=== PATIENT | female | born 1955 | race Caucasian/White ===

== ENCOUNTER 2016-06-25 19:09 | Emergency (ER) | payer BC ==
[2016-06-25 19:20] VITALS: TEMP 100.1
[2016-06-25] MEDS ORDERED: predniSONE 20 MG TAB PO ONE (19:27)
[2016-06-25] MEDS ORDERED: COLCHICINE 0.6 MG TAB PO ONE (19:27)
[2016-06-25] MEDS ORDERED: KETOROLAC TROMETHAMINE INJ 30 MG/ML VIAL IM ONE (19:27)
[2016-06-25 20:20] VITALS: BP 112/59; O2SAT 92
--- NOTE | 2016-06-25 20:45 | ED.PDOC ---
History of Present Illness - General Chief Complaint: Lower Extremity Injury Stated Complaint: rt knee pain Time Seen by Provider: 06/25/16 19:27 Source: patient Exam Limitations: no limitations - History of Present Illness Initial Comments: the patient is a 61-year-old female presenting to the ER due to the acute onset of medial anterior right knee pain while resting on the couch at home. No recent injury. She reports it as a burning type pain. Much worse with palpation. She has had some mild low back discomfort. No weakness. No swelling. Norecent sedentary periods. No other change in medications other than the start of metformin a month or 2 ago. She does drink wine. No history of gout. No injections in the knee. No recent infections. Exam of the knee itself shows exquisite tenderness to palpation in the anterior medial inferior aspect of the knee. Most of the pain is just above the anserine bursa. There is some mild pain over the medial collateral ligament. No pain in the prepatellar bursa. No palpable cords posteriorly. No significant pain posteriorly. No obvious deformity. No evidence of trauma. There is some mild increased warmth over that area. No significant swelling. No evidence of tenderness to palpation over the posterior knee or the right side of the knee. Visually the knee appears normal. Occurred: just prior to arrival Pain - Lower Extremity: moderate: Right Knee Method of Injury: unknown Improving Factors: nothing Worsening Factors: movement Allergies/Adverse Reactions: Allergies NO KNOWN ALLERGY Allergy (Verified 06/25/16 19:32) Home Medications: Ambulatory Orders Amlodipine Besylate-Benazepril [Lotrel 5-10 mg] 1 cap PO DAILY 05/20/15 Atorvastatin Calcium [Lipitor] 40 mg PO BEDTIME 05/20/15 Esomeprazole Magnesium [Nexium 24Hr] 20 mg PO DAILY 05/20/15 FLUoxetine HCL [Prozac] 10 mg PO DAILY 05/20/15 Colchicine 0.6 mg PO Q2H #5 tab 06/25/16 Review of Systems - Review of Systems Constitutional: States: no symptoms reported EENTM: States: no symptoms reported Respiratory: States: no symptoms reported Cardiology: States: no symptoms reported Gastrointestinal/Abdominal: States: no symptoms reported Genitourinary: States: no symptoms reported Musculoskeletal: States: see HPI Skin: States: no symptoms reported Neurological: States: no symptoms reported Endocrine: States: no symptoms reported All other Systems: No Change from Baseline Past Medical History (General) - Patient Medical History Hx Congestive Heart Failure: Yes Hx Hypertension: Yes Hx Diabetes: No Hx Cancer: No Hx Hepatitis C: No Surgical History: other - Vaccination History Hx Influenza Vaccination: Yes - Social History Hx Tobacco Use: No Hx Alcohol Use: Yes - occ Hx Substance Use Treatment: No Family Medical History - Family History Mother Hx Family Diabetes: Yes Hx Family Cancer: Yes Physical Exam - Physical Exam General Appearance: Alert, Anxious, No apparent distress Eyes, Ears, Nose, Throat: PERRL/EOMI Neck: non-tender, full range of motion, supple Cardiovascular/Respiratory: regular rate, rhythm, normal peripheral pulses, normal breath sounds, no respiratory distress Gastrointestinal/Abdominal: non-tender Thigh/Hip: normal inspection, non-tender, no evidence of injury, normal ROM Leg: normal inspection, non-tender, no evidence of injury, normal ROM Knee: other - see history of present illness Ankle: normal inspection, non-tender, no evidence of injury, normal ROM Foot: normal inspection, non-tender, no evidence of injury, normal ROM Neuro/Tendon: normal sensation, normal motor functions, normal tendon functions , responds to pain Mental Status: alert, oriented x 3 Skin: normal color Comments: Vital Signs - 24 hr 06/25/16 06/25/16 19:14 20:19 Temperature 100.1 F H Pulse Rate [ 105 H 85 left] Respiratory 18 18 Rate Blood Pressure 143/78 112/59 [right] O2 Sat by Pulse 95 92 L Oximetry Progress - Progress Progress: 06/25/16 20:46 the patient is a 61-year-old female with anterior medial right knee pain acute onset without obvious inciting trauma. She has responded well to anti-inflammatories including colchicine. Tentative diagnosis is gout. She needs to keep well hydrated. Keep the area warm. She needs to avoid alcohol and high protein loads. She needs to follow up with her primary care doctor early next week. ER warnings are given for any acute worsening. She has written for 5 tablets of colchicine only for as needed use. Departure - Departure Clinical Impression: Gout attack Qualifiers: Gout site: knee Gout etiology: unspecified cause Laterality: right Qualifier Code: (M10.9) Gout, unspecified Disposition: Discharge to Home or Self Care Condition: Fair Departure Forms: ED Discharge - Pt. Copy, Patient Portal Self Enrollment Instructions: DI for Gout Diet: regular diet Activity: increase activity as tolerated Referrals: Navdeep Montelongo MD [Primary Care Provider] - 1-5 Days Prescriptions: Colchicine 0.6 mg PO Q2H #5 tab Home Medications: Ambulatory Orders Amlodipine Besylate-Benazepril [Lotrel 5-10 mg] 1 cap PO DAILY 05/20/15 Atorvastatin Calcium [Lipitor] 40 mg PO BEDTIME 05/20/15 Esomeprazole Magnesium [Nexium 24Hr] 20 mg PO DAILY 05/20/15 FLUoxetine HCL [Prozac] 10 mg PO DAILY 05/20/15 Colchicine 0.6 mg PO Q2H #5 tab 06/25/16 Additional Instructions: the patient is a 61-year-old female with anterior medial right knee pain acute onset without obvious inciting trauma. She has responded well to anti-inflammatories including colchicine. Tentative diagnosis is gout. She needs to keep well hydrated. Keep the area warm. She needs to avoid alcohol and high protein loads. She needs to follow up with her primary care doctor early next week. ER warnings are given for any acute worsening. She has written for 5 tablets of colchicine only for as needed use. no evidence to support infection at this time.
== END 2016-06-25 21:06 | disposition home or self-care (01) ==
LOC: ER 19:09
DX: M10.9 Gout, unspecified (principal); I11.0 Hypertensive heart disease with heart failure; I50.9 Heart failure, unspecified; Z79.899 Other long term (current) drug therapy

== ENCOUNTER → 2019-02-17 | Outpatient (CLI) | payer BC ==
--- NOTE | 2019-02-21 19:53 | MAM ---
EXAM DESCRIPTION: 3D Screening BILATERAL : Digital Mammography. CLINICAL HISTORY: 63 years Female ANNUAL SCREENING . No complaints or personal history of breast cancer. Remote family history of breast cancer. Childbirth. Postmenopausal. HRT 5 or more years ago.. Lifetime risk of developing breast cancer (Tyrer-Cuzick model)(%): 8.9. COMPARISON: 2-D digital screening bilateral mammography 12/19/2014.. TECHNIQUE: Bilateral CC and MLO projection full-field images, digital tomosynthesis mammographic technique. Bilateral digital 2-D full-field MLO images. CAD not available for tomosynthesis or 2-D images. FINDINGS: The breast parenchymal density pattern is: Extremely dense breast tissue, which lowers the sensitivity of mammography. No skin thickening or nipple retraction. Right axillary lymph node. Bilateral solitary microcalcifications. No new focal, stellate mass or density, focal asymmetry , and no suspicious microcalcifications bilaterally. Stable mammograms compared to prior study. Taking into account, differences in mammographic technique. IMPRESSION: Benign exam. BIRAD CATEGORY: 2 BENIGN FINDINGS. RECOMMENDATIONS: FOLLOW UP: Routine digital bilateral mammographic screening, one year interval from January 2019. Written communication explaining the IMPRESSION and follow-up, will be mailed to the patient and referring health care provider. According to the [employer], yearly mammograms are recommended starting at age 40 and continuing as long as a woman is in good health. Any breast change noted on a breast self-exam should be reported promptly to the patient's healthcare provider. Breast MRI is recommended for women with an approximately 20-25% or greater lifetime risk of breast cancer, including women with a strong family history of breast or ovarian cancer and women who have been treated for Hodgkin's disease. A negative mammographic report should not delay tissue diagnosis in patients with significant clinical history or physical findings. Extremely dense breast tissue limits the sensitivity of digital mammography. Electronically signed by: Roland Briones MD 02/21/2019 7:52 PM CDT
== END ==
LOC: MAMMO 08:24
PROVIDERS: ATTEND Obstetrics & Gynecology
DX: Z12.31 Encounter for screening mammogram for malignant neoplasm of breast (principal)

== ENCOUNTER 2020-06-16 15:13 | Emergency (ER) | payer BC ==
[2020-06-16] MEDS ORDERED: DEXAMETHASONE INJ 10 MG/ML VIAL IV ONE (15:32)
--- NOTE | 2020-06-16 15:32 | ED.PDOC ---
History of Present Illness - General Chief Complaint: Respiratory Problem Stated Complaint: +COVID,shortness of breath,low sats Time Seen by Provider: 06/16/20 15:14 Source: patient, RN notes reviewed, Vital Signs reviewed Exam Limitations: no limitations - History of Present Illness Comments: 65 yo F with hx of HTN was dx with covid 5 days ago. Symptoms started 10 days ago. Had cough, congestion, shortness of breath. Today was feeling worse. Had pulse ox at home, states it wasn't reading well, but got a reading of 86%, rechecked it and it was back up to 94%. Came in because she was concerned about her oxygen levels. Allergies/Adverse Reactions: Allergies NO KNOWN ALLERGY Allergy (Verified 06/25/16 19:32) Home Medications: Ambulatory Orders Amlodipine Besylate-Benazepril [Lotrel 5-10 mg] 1 cap PO DAILY 05/20/15 Dexamethasone [Decadron] 4 mg PO DAILY #5 tab 06/16/20 Review of Systems - Review of Systems Constitutional: States: fever, malaise. Denies: chills EENTM: Denies: blurred vision, throat pain Respiratory: States: cough, short of breath Cardiology: Denies: chest pain, edema, palpitations Gastrointestinal/Abdominal: Denies: abdominal pain, diarrhea, nausea Musculoskeletal: Denies: back pain, joint pain, joint swelling, muscle pain Skin: Denies: rash Neurological: Denies: headache Endocrine: Denies: unexplained weight loss Hematologic/Lymphatic: Denies: blood clots, easy bleeding, easy bruising Past Medical History (General) - Patient Medical History Hx Stroke: No Hx Congestive Heart Failure: Yes Hx Hypertension: Yes Hx Diabetes: No Hx Cancer: No Hx Hepatitis C: No - Vaccination History Hx Influenza Vaccination: Yes Hx Pneumococcal Vaccination: Yes - Social History Hx Tobacco Use: No Hx Alcohol Use: Yes - occ Hx Substance Use Treatment: No Family Medical History - Family History Mother Family History: Unknown Living Status: Unknown Hx Family Diabetes: Yes Hx Family Cancer: Yes Physical Exam - Physical Exam General Appearance: Alert, Comfortable, No apparent distress, Well Developed, Well Groomed, Well Hydrated, Well Nourished Eye Exam: bilateral normal ENT Exam: normal ENT inspection, hearing grossly normal, TMs normal Neck: non-tender, full range of motion, supple, normal inspection Respiratory: chest non-tender, lungs clear, normal breath sounds, no respiratory distress, no accessory muscle use Cardiovascular/Chest: normal peripheral pulses, regular rate, rhythm, no edema, no gallop, no JVD, no murmur Gastrointestinal/Abdominal: normal bowel sounds, non tender, soft, no organomegaly, no pulsatile mass Extremity: normal range of motion, non-tender, normal inspection, no pedal edema, no calf tenderness, normal capillary refill Neurologic: flying i instructor II-XII nml as tested, no motor/sensory deficits, alert, normal mood/affect, oriented x 3 Skin Exam: normal color, warm/dry Progress - Progress Progress: 06/16/20 17:04 patient given remdisivir, dexamethasone. Due to having symptoms more than 10 days does not qualify for bamlanivumb. Discussed with Johnathon Brennan, suggest discharge with oxygen. patient does have home pulse ox. Oxygen qualification study shows O2 drop to 87%. Will dc with oxygen. The data reviewed when caring for this patient included: nurse notes, prior records, etc. The history and assessments from nurses notes were reviewed and considered, and the patient's home medication list was also reviewed and considered. My assessment and the results of testing completed here in the ED were discussed with the patient. All questions were answered, and they express understanding of my assessment and the plan. They have been instructed to return if their symptoms worsen, and have been asked to follow up with their primary care physician to recheck today's presenting complaint. Strict return precautions given. I have reviewed medication, benefits, alternatives and side effects. Patient decided to proceed with medication.vss, hr improved to 89, patient discharged home in stable condition. Leonor Valencia DO #[id number] 06/16/20 17:40 - EKG/XRAY/CT EKG: Sinus, Tachy Comments: normal intervals, no acute ischemia. XRAY: chest - no acute pathology Departure - Departure Clinical Impression: COVID-19, Hypoxia Time of Disposition: 17:31 Disposition: Discharge to Home or Self Care Diet: resume usual diet Activity: increase activity as tolerated Home Medications: Ambulatory Orders Amlodipine Besylate-Benazepril [Lotrel 5-10 mg] 1 cap PO DAILY 05/20/15 Dexamethasone [Decadron] 4 mg PO DAILY #5 tab 06/16/20 Decision To Admit - Decistion To Admit Decision to Admit Reason: Medical Nature Decision to Admit Date: 06/16/20 Decision to Admit Time: 16:01
--- NOTE | 2020-06-16 16:14 | RAD ---
EXAM DESCRIPTION: Chest,1 View CLINICAL HISTORY:65 years Female, covid Comparison: None FINDINGS: No focal lung consolidation. No pleural effusion. No pneumothorax. Cardiac and mediastinal silhouette is unremarkable. No acute osseous abnormality. Soft tissues are unremarkable. IMPRESSION: No acute findings. No focal lung consolidation. Electronically signed by: Silvano Laws MD 06/16/2020 4:13 PM TELETYPESETTER
[2020-06-16] MEDS ORDERED: REMDESIVIR 200 MG in SODIUM CHLORIDE 0.9% 250ML 250 ML IVPB ONE (16:26)
[2020-06-16 18:27] VITALS: BP 158/95; TEMP 98.4; O2SAT 96
== END 2020-06-16 17:18 | disposition home or self-care (01) ==
LOC: ER 15:13 → MS 16:54 → UNDOADMOB 16:54 → ER 17:18
DX: U07.1 COVID-19 (principal); R09.02 Hypoxemia; R00.0 Tachycardia, unspecified; I50.9 Heart failure, unspecified; I11.0 Hypertensive heart disease with heart failure
CPT/HCPCS: 36415; 71045; 80053; 82550; 83615; 83735; 83880; 84484; 85025; 85379; 85730; 86140; 87040; 93005; J1100; J7050